=== PATIENT | female | born 1955 | race Caucasian/White ===

== ENCOUNTER 2019-07-22 13:56 | Outpatient (CLI) | payer MEDICARE, SELFPAY ==
--- NOTE | 2019-07-23 21:08 | WPDSIXMINUTE ---
Six Minute Walk Six Minute Walk: DOS: 07/22/2019 REQUESTING: Dr. Mares REASON FOR TESTING: Shortness of breath SIX MINUTE WALK This test was conducted per ATS guidelines. Initial saturation was 94% pulse was 94. Blood pressure 136/80. The patient walked for 6 minutes without stopping. Saturation dropped transiently to 89% after 4 minutes and recovered spontaneously. The ending saturation was 94% and pulse was 87. Distance walked was 1050 ft/320 meters. The patient did not stop to rest during the study. IMPRESSION: Mild desaturation without james hypoxemia. No supplemental oxygen is indicated with exertion. Distance walked is adequate for age. Kezia Zelaya MD
== END 2019-07-22 13:57 | disposition home or self-care (01) ==
PROVIDERS: PCP Internal Medicine; Visit Provider Internal Medicine Critical Care Medicine
DX: J44.9 Chronic obstructive pulmonary disease, unspecified (principal)
CPT/HCPCS: 94618

== ENCOUNTER 2020-11-02 06:41 | Outpatient (CLI) | payer MEDICARE, SELFPAY ==
[2020-11-02 07:41] LABS: Basophils Absolute Auto 0.1 K/mm3 (0.0-0.1); Basophils Percent Auto 0.6 % (0.2-1.2); Eosinophils Absolute Auto 0.3 K/mm3 (0-0.3); Eosinophils Percent Auto 3.2 % (0-4.4); Hematocrit 41.9 % (37.0-47.0); Hemoglobin 13.4 g/dL (12.0-15.0); Immature Granulocyte Absolute 0.04 K/mm3 (0.00-0.031); Immature Granulocyte Percent A 0.5 % (0-0.5); Lymphocytes Absolute Auto 1.63 K/mm3 (0.9-3.2); Mean Corpuscular Hemoglobin 30.9 pg (26-34); Mean Corpuscular Volume 96.5 fl (80-100); Mean Platelet Volume 10.6 fl (7.4-10.4); Monocytes Absolute Auto 0.6 K/mm3 (0.1-0.6); Monocytes Percent Auto 7.5 % (2.6-8.5); Neutrophils Absolute Auto 5.6 K/mm3 (1.3-6.7); Neutrophils Percent Auto 68.2 % (45.5-73.1); Platelet Count Result 223 k/mm3 (150-375); Red Blood Count 4.34 M/mm3 (4.2-5.4); White Blood Count 8.2 K/mm3 (4.5-10.0)
[2020-11-02 07:50] LABS: Alanine Aminotransferase 10 U/L (4-35); Albumin Level 3.9 g/dL (3.5-5.1); Alkaline Phosphatase 58 U/L (38-126); Anion Gap 8 mmol/L (8-16); Aspartate Amino Transferase 19 U/L (14-36); Bilirubin,Total 0.4 mg/dL (0.2-1.3); Blood Urea Nitrogen 11 mg/dL (7-17); Carbon Dioxide 26 mmol/L (22-30); Chloride 108 mmol/L (98-107); Cholesterol 286 mg/dL (0-200); Estimated Glomerular Filt Rate > 60; Glucose 94 mg/dL (65-105); HDL Direct 54 mg/dL; Potassium 4.2 mmol/L (3.4-5.0); Sodium 142 mmol/L (137-145); Triglycerides 86 mg/dL (<150)
[2020-11-02 08:01] LABS: LDL Cholesterol Direct 163 mg/dL
[2020-11-02 08:21] LABS: Vitamin D 25 Hydroxy 48.1 ng/mL
== END 2020-11-02 06:42 | disposition home or self-care (01) ==
PROVIDERS: PCP Internal Medicine; Visit Provider Nurse Practitioner
DX: E78.5 Hyperlipidemia, unspecified (principal); E55.9 Vitamin D deficiency, unspecified; E03.9 Hypothyroidism, unspecified
CPT/HCPCS: 36415; 80053; 80061; 82306; 84443; 85025

== ENCOUNTER 2020-11-16 10:23 | Outpatient (CLI) | payer MEDICARE, SELFPAY ==
--- NOTE | ~2020-11-16 | US_ITS ---
EXAMINATION: US soft tissue lower back DATE: 11/16/2020 10:46 INDICATION: Right flank mass. TECHNIQUE: Multiple grayscale and Doppler ultrasound images of the right flank were obtained. COMPARISON: Chest CT 02/10/2019 FINDINGS: In the right flank body wall, there is a 4.2 x 0.7 x 3.2 cm mass with similar echogenicity and echotexture to subcutaneous fat. This finding correlates with a lipoma on the prior CT. IMPRESSION: 1. 4.2 cm lipoma in the right flank body wall. Reviewed, dictated and finalized at location A.
== END 2020-11-16 10:24 | disposition home or self-care (01) ==
PROVIDERS: PCP Internal Medicine; Visit Provider Nurse Practitioner
DX: R22.9 Localized swelling, mass and lump, unspecified (principal)
CPT/HCPCS: 76705

== ENCOUNTER 2020-11-19 10:00 | Outpatient (CLI) | payer MEDICARE, SELFPAY ==
--- NOTE | ~2020-11-19 | CT_ITS ---
EXAMINATION: CT lung screening DATE: 11/19/2020 10:31 INDICATION: Personal history of tobacco dependence, current smoker with 40 pack year history TECHNIQUE: Computed tomography (CT) of the chest was performed without intravenous contrast. The dose -length product (DLP) was 82.88 mGy-cm. Automated exposure control and iterative reconstruction techn [email or web address] were employed. COMPARISON: 02/10/2019 FINDINGS: There is mild emphysema. There is a 2 mm nodule of the left upper lobe on image 22. There i s a 2 mm nodule of the right upper lobe on image 26. The lungs are free of acute opacities. There is no pleural effusion or pneumothorax. No pathologically enlarged thoracic lymph nodes are identified. The heart size is normal. An ASD closure device is noted. There is mild thoracic spondylosis and nakia re lower lumbar spondylosis. A 1.4 cm cyst is noted in the left hepatic lobe. IMPRESSION: 1. Lung-RADS category 2: Benign appearance or behavior. Continue annual screening with noncontrast lo w-dose chest CT in 12 months. Reviewed, dictated and finalized at location A. IMPRESSION: 1. Lung-RADS category 2: Benign appearance or behavior. Continue annual screeni ng with noncontrast low-dose chest CT in 12 months.
== END 2020-11-19 10:01 | disposition home or self-care (01) ==
PROVIDERS: PCP Internal Medicine; Visit Provider Nurse Practitioner
DX: Z12.2 Encounter for screening for malignant neoplasm of respiratory organs (principal); Z87.891 Personal history of nicotine dependence
CPT/HCPCS: 71271

== ENCOUNTER 2021-05-06 07:07 | Outpatient (CLI) | payer MEDICARE, SELFPAY ==
--- NOTE | ~2021-05-06 | MM_ITS ---
EXAMINATION: MM screening [facility] BI w cecilia HISTORY: Screening TECHNIQUE: Craniocaudal and mediolateral oblique 3-D tomosynthesis images were obtained and synthetic 2-D images were generated. CAD analysis was submitted and interpreted. COMPARISON: Comparison to multiple prior studies sequentially, with oldest reviewed study dated 03/28. BREAST PARENCHYMAL COMPOSITION: There are scattered areas of fibroglandular density. FINDINGS: There is no evidence of suspicious mass, calcification, or architectural distortion to sugg est malignancy in either breast. There has been no suspicious interval change. IMPRESSION: 1. No mammographic evidence of malignancy. 2. Recommend routine screening mammography in one year. BI-RADS Category 1: Negative Reviewed, dictated and finalized at location A. ALT ROLL[employer] PERSON
== END 2021-05-06 07:08 | disposition home or self-care (01) ==
LOC: ANHIMG 07:10
PROVIDERS: PCP Internal Medicine; Visit Provider Internal Medicine
DX: Z12.31 Encounter for screening mammogram for malignant neoplasm of breast (principal)
CPT/HCPCS: 77063; 77067

== ENCOUNTER 2021-11-22 08:18 | Outpatient (CLI) | payer MEDICARE, SELFPAY ==
--- NOTE | ~2021-11-22 | CT_ITS ---
EXAMINATION: CT diagnostic chest wo con DATE: 11/22/2021 08:38 INDICATION: Lung nodule TECHNIQUE: Computed tomography (CT) of the chest was performed without intravenous contrast. Automate d exposure control and iterative reconstruction technique were employed. Exam dose: 154.90 mGy-cm to jose exam DLP. COMPARISON: 11/19/2020 CT lung screening examinations FINDINGS: No change of reported 2 mm left upper lobe nodule since 11/19/2020. No change of 2 mm nodule reported in the posterior right upper lobe since 11/19/2020. Mild emphysematous changes of the lungs. No pulmonary infiltrate or consolidation or suspicious pulmonary mass lesion is detected. No hilar or mediastinal mass lesion or lymphadenopathy. No thoracic aortic aneurysm. Normal heart size. Atrial septal closure device is noted. No pericardial or pleural effusion. Stable lateral segment left hepatic cyst. Normal morphology of the adrenal glands. Included skeletal structures are unremarkable; no suspicious osteolytic or osteoblastic lesions. IMPRESSION: No significant abnormality other than mild emphysema Reviewed, dictated and finalized at Location A. Reviewed, dictated and finalized at location B.
== END 2021-11-22 08:19 | disposition home or self-care (01) ==
PROVIDERS: PCP Internal Medicine; Visit Provider Nurse Practitioner
DX: R91.1 Solitary pulmonary nodule (principal)
CPT/HCPCS: 71250

== ENCOUNTER 2022-02-15 08:15 | Outpatient (CLI) | payer MEDICARE, SELFPAY ==
[2022-02-15 08:36] LABS: Basophils Absolute Auto 0.1 K/mm3 (0.0-0.1); Basophils Percent Auto 0.6 % (0.2-1.2); Eosinophils Absolute Auto 0.4 K/mm3 (0-0.3); Eosinophils Percent Auto 3.9 % (0-4.4); Hematocrit 45.2 % (37.0-47.0); Hemoglobin 14.4 g/dL (12.0-15.0); Immature Granulocyte Absolute 0.04 K/mm3 (0.00-0.031); Immature Granulocyte Percent A 0.4 % (0-0.5); Lymphocytes Absolute Auto 1.44 K/mm3 (0.9-3.2); Lymphocytes Percent Auto 16.2 % (18.3-44.2); Mean Corpuscular HGB Conc 31.9 g/dl (32-36); Mean Corpuscular Hemoglobin 31.9 pg (26-34); Mean Platelet Volume 10.3 fl (7.4-10.4); Monocytes Absolute Auto 0.5 K/mm3 (0.1-0.6); Monocytes Percent Auto 5.5 % (2.6-8.5); Neutrophils Absolute Auto 6.5 K/mm3 (1.3-6.7); Neutrophils Percent Auto 73.4 % (45.5-73.1); Platelet Count Result 251 k/mm3 (150-375); Red Blood Count 4.52 M/mm3 (4.2-5.4); Red Cell Distribution Width 14.3 % (11.5-14.5); White Blood Count 8.9 K/mm3 (4.5-10.0)
[2022-02-15 08:47] LABS: Alanine Aminotransferase 15 U/L (6-35); Albumin Level 4.2 g/dL (3.5-5.1); Alkaline Phosphatase 68 U/L (38-126); Anion Gap 10 mmol/L (8-16); Aspartate Amino Transferase 21 U/L (14-36); Bilirubin,Total 0.5 mg/dL (0.2-1.3); Blood Urea Nitrogen 12 mg/dL (7-17); Calcium 8.9 mg/dL (8.4-10.2); Carbon Dioxide 25 mmol/L (22-30); Chloride 105 mmol/L (98-107); Cholesterol 215 mg/dL (0-200); Estimated Glomerular Filt Rate > 60; Glucose 94 mg/dL (65-110); HDL Direct 52 mg/dL; Potassium 4.1 mmol/L (3.4-5.0); Sodium 140 mmol/L (137-145); Triglycerides 68 mg/dL (<150)
[2022-02-15 08:56] LABS: Prothrombin Time 12.9 Seconds (11.1-14.7)
[2022-02-15 08:58] LABS: LDL Cholesterol Direct 136 mg/dL
[2022-02-15 09:38] LABS: Vitamin D 25 Hydroxy 35.5 ng/mL
== END 2022-02-15 08:16 | disposition home or self-care (01) ==
PROVIDERS: PCP Internal Medicine; Visit Provider Nurse Practitioner
DX: R23.8 Other skin changes (principal); E55.9 Vitamin D deficiency, unspecified; E03.9 Hypothyroidism, unspecified; E78.5 Hyperlipidemia, unspecified
CPT/HCPCS: 36415; 80053; 80061; 82306; 84443; 85025; 85610

== ENCOUNTER 2022-05-17 13:29 | Outpatient (CLI) | payer MEDICARE, SELFPAY ==
--- NOTE | ~2022-05-17 | DEXA_ITS ---
Bone Density Report Name: ARTHUR CODY Age: 66 Sex: Female Ethnicity: White Date of : 1955 Indication: postmenopausal; screening for osteoporosis; height loss; Referring Provider: ERICKA GUERRA Study: Bone densitometry was performed. Exam Date: May 17, 2022 Accession number: [id number] Bone Density: Region BMD T-score Z-score Classification AP Spine(L1-L4) 0.839 -1.9 -0.1 Osteopenia Femoral Neck (Left) 0.551 -2.7 -1.1 Osteoporosis Total Hip (Left) 0.701 -2.0 -0.7 Osteopenia Femoral Neck (Right) 0.546 -2.7 -1.2 Osteoporosis Total Hip (Right) 0.648 -2.4 -1.1 Osteopenia Total Hip Mean 0.674 -2.2 -0.9 Osteopenia World Health Organization criteria for BMD impression classify patients as: Normal (T-score at or above -1.0), Osteopenia (T-score between -1.0 and -2.5), or Osteoporosis (T-score at or below -2.5). 10-year Fracture Risk: FRAX not reported because: Some T-score for Spine Total or Hip Total or Femoral Neck at or below -2.5 Clinical Information Provided by Patient: Smokes Has used the following medications: Vitamin D Patient maximum height was 61 Menopause Age: 51 No regular weight bearing exercise Does not regularly consume dairy products Drinks caffeinated beverages Onset of menses at age 14 Number of children 2 Impression: The patient has osteoporosis, based on the Left Femoral Neck T-score. The patient has risk factors, including: smoking. Discussion: INCREASED RISK OF FRACTURE. BONE DENSITY IS UNDESIRABLY LOW AT ONE OR MORE SKELETAL SITES, CONSISTENT WITH POSTMENOPAUSAL OSTEOPOROSIS. This patient's lowest T-score meets the World Health Organization's (WHO) criteria for osteoporosis at one or more sites (T-score -2.5 or below). In untreated patients, the risk of osteoporotic fracture increases approximately two-fold for each 1.0 SD decrease in T-score. Low bone density is not the only risk factor for fracture; also consider factors such as patient's age, frailty or poor health, risk of falling, risk of injury, previous osteoporotic fracture, family history of osteoporosis, cigarette smoking, low body weight, etc. Not everyone with low bone mineral density has osteoporosis; osteomalacia and other metabolic bone disorders should also be considered. Patients who have osteoporosis should be evaluated for specific diseases and conditions (secondary causes) that may cause or contribute to bone loss. The [place] [employer]ocrinologists (AACE) and National Osteoporosis Foundation (NOF) recommend pharmacologic intervention for all postmenopausal women whose T-score is in this range. The patient should follow a healthful lifestyle (good nutrition with adequate calcium and vitamin D, and appropriate weight-bearing exercise). Follow-Up: Consider a repeat BMD
== END 2022-05-17 13:30 | disposition home or self-care (01) ==
PROVIDERS: PCP Internal Medicine; Visit Provider Nurse Practitioner
DX: M81.0 Age-related osteoporosis without current pathological fracture (principal); M85.88 Other specified disorders of bone density and structure, other site; M85.852 Other specified disorders of bone density and structure, left thigh; M85.851 Other specified disorders of bone density and structure, right thigh
CPT/HCPCS: 77080

== ENCOUNTER 2022-07-04 01:39 | Day surgery (SDC) | payer MEDICARE, SELFPAY ==
[2022-06-20 13:38] VITALS: BMI 26.0
[2022-07-04 06:43] VITALS: BP 109/74; PULSE 102; RESP 17; TEMP 36.4; O2SAT 94; BMI 24.8
[2022-07-04] MEDS: LACTATED RINGERS 1,000 ML 150 ML IV CONT (06:50)
--- NOTE | 2022-07-04 07:31 | WPDANESEPPF ---
Anes - Initial Pre Proc Eval Procedure: Operation Date: 07/04/22 08:00 Proposed Procedures p Colonoscopy - Jesús Pate MD Date/Time: 07/04/22 07:31 Surgeon: Jesús Pate MD Pre Op Diagnosis: change in bowel habits Patient Data Age: 66 Gender: F Height: 1.52 m Weight: 57.8 kg Last Vital Signs Temp 97.5 F L 07/04/22 06:43 Pulse 102 H 07/04/22 06:43 Resp 17 07/04/22 06:43 BP 109/74 07/04/22 06:43 Pulse Ox 94 07/04/22 06:43 O2 Del Method Room Air 07/04/22 06:43 Allergies Allergy/AdvReac Type Severity Reaction Status Date / Time Sulfa (Sulfonamide Allergy Unknown n/a Verified 07/04/22 06:41 Antibiotics) Home Medications Medication Instructions Recorded Confirmed Type aspirin 81 mg tablet,delayed 81 mg PO DAILY 05/07/19 07/04/22 History release (Adult Low Dose Aspirin) cholecalciferol (vitamin D3) 25 2,000 unit PO DAILY 05/07/19 07/04/22 History mcg (1,000 unit) capsule inhalational spacing device #1 ea 07/18/19 07/04/22 Rx (Vortex Holding Chamber) budesonide-formoterol HFA 160 2 puff inhalation BID #10.2 grams 05/17/22 07/04/22 Rx mcg-4.5 mcg/actuation aerosol inhaler (Symbicort) ezetimibe 10 mg tablet (Zetia) 10 mg PO DAILY #90 tabs 06/08/22 07/04/22 Rx sertraline 50 mg tablet 75 mg PO DAILY #135 tabs 06/08/22 07/04/22 Rx albuterol sulfate 90 mcg/actuation 2 inh inhalation Q4-6H PRN 06/20/22 07/04/22 History aerosol inhaler Shortness Of Breath levothyroxine 50 mcg tablet 50 mcg PO DAILY 06/20/22 07/04/22 History Patient hx anesthesia problems: none Family hx anesthesia problems: none Results Review: All pre-operative results and documents have been reviewed as part of the pre-operative evaluation. [facility] Past Medical History Medical History Acquired hypothyroidism COPD (chronic obstructive pulmonary disease) CVA (cerebral vascular accident) Dyspnea Hyperlipidemia Hypothyroidism Lung nodule Major depressive disorder Migraine Osteoporosis Osteoporosis without current pathological fracture Pulmonary emphysema Surgical History Surgical History History of ankle surgery History of catheter-based closure of atrial septal defect Family History Family History Mother Hypertension Breast cancer TIA (transient ischemic attack) Brain aneurysm Father Family history of cardiovascular disease Hypertension Sibling Dementia Social History Social History (Updated 05/31/22 @ 08:20 by Aliza Jaramillo CMA) Smoking packs per day: 1 Smoking cigarettes per day: 20.0 Years smoked: 40 Smoking pack-years: 40.00 Smoking status: Current every day smoker Tobacco type: cigarettes Alcohol intake: never Substance use: never Substance use type: does not use Lack of Transportation: No Lack of Food: Never True Current Housing: I Have Housing Concerned About Future Housing: No Difficulty Paying Gas/Electric Bills: No Difficulty Paying for Meds: No Currently Unemployed: No Education: Trade/Vocational Certificate Difficulty w/ Childcare or Family Care: No Living arrangements: with family Spiritual care concerns: No Anes - Eval Final PreProcedure Day of Procedure 07/04/22 07:31 Patient weight: normal Heart: regular rate and rhythm Lungs: clear to auscultation Airway: Mallampati scale class II Neurological: alert and oriented Last oral intake: >/= 8 hours ASA classification: III Emergent: no Anesthetic plan: proceed Anesthesia type and monitoring: general GIVS and standard monitoring Results Review: All pre-operative results and documents have been reviewed as part of the pre-operative evaluation. Informed Consent: The patient's anesthetic plan and its attendant risks and benefits were discussed with the pat
--- NOTE | 2022-07-04 07:45 | PM.HPGS ---
History of Present Illness History of Present Illness Consent: Risks, benefits, and alternatives have been discussed and questions answered. Patient agrees to proceed with procedure. Chief complaint: change in bowel habits Narrative: Lucía Olivo is a 66 year old female with change of bowel habits last few months but lately better, she was having soft stools soon after eating, never had colonoscopy Review of Systems Constitutional: Constitutional: Denies headache(s) and Denies weakness Eyes: Eyes: Denies blurry vision ENT: Reports Normal hearing present, Denies headache(s) and Denies neck pain Cardiovascular: Cardiovascular: Denies chest pain and Denies dyspnea Respiratory: Respiratory: Denies dyspnea Gastrointestinal: Gastrointestinal: Reports no additional gastrointestinal complaints Genitourinary: Genitourinary: Denies dysuria Musculoskeletal: Musculoskeletal: Denies neck pain Integumentary/Breasts: Skin/Breast: Denies dry skin Neurologic: Reports Normal hearing present, Denies headache(s) and Denies weakness Psychiatric: Psychiatric: Denies anxiety Endocrine: Endocrine: Denies change in body appearance Hematologic/Lymphatic: Hematologic/Lymphatic: Denies easy bleeding Allergic/Immunologic: Allergic/Immunologic: Denies urticaria PMFSH Past Medical History Medical History (Updated 07/04/22 @ 07:46 by Jesús Pate MD) Acquired hypothyroidism Colon cancer screening COPD (chronic obstructive pulmonary disease) CVA (cerebral vascular accident) Dyspnea Hyperlipidemia Hypothyroidism Lung nodule Major depressive disorder Migraine Osteoporosis Osteoporosis without current pathological fracture Pulmonary emphysema Surgical History Surgical History History of ankle surgery History of catheter-based closure of atrial septal defect Family History Family History Mother Hypertension Breast cancer TIA (transient ischemic attack) Brain aneurysm Father Family history of cardiovascular disease Hypertension Sibling Dementia Social History Social History (Updated 05/31/22 @ 08:20 by Aliza Jaramillo CMA) Smoking packs per day: 1 Smoking cigarettes per day: 20.0 Years smoked: 40 Smoking pack-years: 40.00 Smoking status: Current every day smoker Tobacco type: cigarettes Alcohol intake: never Substance use: never Substance use type: does not use Lack of Transportation: No Lack of Food: Never True Current Housing: I Have Housing Concerned About Future Housing: No Difficulty Paying Gas/Electric Bills: No Difficulty Paying for Meds: No Currently Unemployed: No Education: Trade/Vocational Certificate Difficulty w/ Childcare or Family Care: No Living arrangements: with family Spiritual care concerns: No Meds Home Medications and Allergies Home Medications Medication Instructions Recorded Confirmed Type aspirin 81 mg tablet,delayed 81 mg PO DAILY 05/07/19 07/04/22 History release (Adult Low Dose Aspirin) cholecalciferol (vitamin D3) 25 2,000 unit PO DAILY 05/07/19 07/04/22 History mcg (1,000 unit) capsule inhalational spacing device #1 ea 07/18/19 07/04/22 Rx (Vortex Holding Chamber) budesonide-formoterol HFA 160 2 puff inhalation BID #10.2 grams 05/17/22 07/04/22 Rx mcg-4.5 mcg/actuation aerosol inhaler (Symbicort) ezetimibe 10 mg tablet (Zetia) 10 mg PO DAILY #90 tabs 06/08/22 07/04/22 Rx sertraline 50 mg tablet 75 mg PO DAILY #135 tabs 06/08/22 07/04/22 Rx albuterol sulfate 90 mcg/actuation 2 inh inhalation Q4-6H PRN 06/20/22 07/04/22 History aerosol inhaler Shortness Of Breath levothyroxine 50 mcg tablet 50 mcg PO DAILY 06/20/22 07/04/22 History Allergies Allergy/AdvReac Type Severity Reaction Status Date / Time Sulfa (Sulfonamide Allergy Unknown n/a Verified 07/04/22 06:41 Antibiotics)
[2022-07-04 08:07] VITALS: BP 88/53; PULSE 77; RESP 37; O2SAT 100
[2022-07-04 08:17] VITALS: BP 89/57; PULSE 74; RESP 16; O2SAT 99
[2022-07-04 08:27] VITALS: BP 102/60; PULSE 72; RESP 14; O2SAT 99
== END 2022-07-04 08:32 | disposition home or self-care (01) ==
PROVIDERS: PCP Internal Medicine; Visit Provider Internal Medicine Gastroenterology
PROC: 0DJD8ZZ Inspection of Lower Intestinal Tract, Via Natural or Artificial Opening Endoscopic (ICD-10-PCS; CPT 45378; principal; 2022-07-04 08:00)
DX: Z12.11 Encounter for screening for malignant neoplasm of colon (principal); D12.2 Benign neoplasm of ascending colon; K63.5 Polyp of colon; R19.4 Change in bowel habit; K64.8 Other hemorrhoids; E03.9 Hypothyroidism, unspecified; E78.5 Hyperlipidemia, unspecified; M81.0 Age-related osteoporosis without current pathological fracture; J43.9 Emphysema, unspecified; Z86.73 Personal history of transient ischemic attack (TIA), and cerebral infarction without residual deficits; Z79.82 Long term (current) use of aspirin; Z79.51 Long term (current) use of inhaled steroids; F17.210 Nicotine dependence, cigarettes, uncomplicated
CPT/HCPCS: 45385; 45380; 88305; J2704; J7120

== ENCOUNTER 2022-07-07 09:05 | Outpatient (CLI) | payer MEDICARE, SELFPAY ==
--- NOTE | ~2022-07-07 | MM_ITS ---
EXAMINATION: MM screening [facility] BI w cecilia HISTORY: Screening mammogram TECHNIQUE: Craniocaudal and mediolateral oblique 3-D tomosynthesis images were obtained and synthetic 2-D images were generated. CAD analysis was submitted and interpreted. COMPARISON: 05/06/2021, 04/24/2017 bilateral screening mammogram examinations BREAST PARENCHYMAL COMPOSITION: The breasts are heterogeneously dense, which may obscure small masses . FINDINGS: There is no evidence of suspicious mass, calcification, or architectural distortion to sugg est malignancy in either breast. There has been no suspicious interval change. IMPRESSION: 1. No mammographic evidence of malignancy. 2. Recommend routine screening mammography in one year. BI-RADS Category 1: Negative Reviewed, dictated and finalized at location A. H TRUCK DRIVER
== END 2022-07-07 09:06 | disposition home or self-care (01) ==
PROVIDERS: PCP Internal Medicine; Visit Provider Nurse Practitioner
DX: Z12.31 Encounter for screening mammogram for malignant neoplasm of breast (principal)
CPT/HCPCS: 77063; 77067

== ENCOUNTER → 2022-12-25 13:22 | Outpatient (CLI) | payer MEDICARE, SELFPAY ==
--- NOTE | ~2022-12-25 | XR_ITS ---
EXAMINATION: XR chest 2V DATE: 12/25/2022 13:34 INDICATION: Cough. Fever. Shortness of breath. TECHNIQUE: Frontal and lateral views of the chest were obtained. COMPARISON: Chest 2 views 02/02/2015, chest CT 11/22/2021 FINDINGS: The chest demonstrates clear lungs without pneumonia, pleural effusion, or pneumothorax. Th e heart size is normal. There is an interatrial closure device. IMPRESSION: 1. No acute cardiopulmonary disease. Reviewed, dictated and finalized at location A.
== END ==
PROVIDERS: PCP Nurse Practitioner; Visit Provider Clinical Nurse Specialist
DX: R05.9 Cough, unspecified (principal); R50.9 Fever, unspecified; R06.02 Shortness of breath
CPT/HCPCS: 71046

== ENCOUNTER 2023-04-25 08:29 | Outpatient (CLI) | payer MEDICARE, SELFPAY ==
[2023-04-25 09:28] LABS: Basophils Percent Auto 0.4 % (0.2-1.2); Eosinophils Absolute Auto 0.2 K/mm3 (0-0.3); Eosinophils Percent Auto 1.8 % (0-4.4); Hematocrit 43.8 % (37.0-47.0); Hemoglobin 13.8 g/dL (12.0-15.0); Immature Granulocyte Absolute 0.04 K/mm3 (0.00-0.031); Immature Granulocyte Percent A 0.4 % (0-0.5); Lymphocytes Absolute Auto 1.08 K/mm3 (0.9-3.2); Lymphocytes Percent Auto 11.9 % (18.3-44.2); Mean Corpuscular HGB Conc 31.5 g/dl (32-36); Mean Corpuscular Hemoglobin 31.4 pg (26-34); Mean Corpuscular Volume 99.5 fl (80-100); Mean Platelet Volume 10.7 fl (7.4-10.4); Monocytes Absolute Auto 0.5 K/mm3 (0.1-0.6); Monocytes Percent Auto 5.8 % (2.6-8.5); Neutrophils Absolute Auto 7.2 K/mm3 (1.3-6.7); Neutrophils Percent Auto 79.7 % (45.5-73.1); Platelet Count Result 256 k/mm3 (150-375); Red Cell Distribution Width 14.5 % (11.5-14.5)
[2023-04-25 09:38] LABS: INR 0.9; Prothrombin Time 12.6 Seconds (11.1-14.7)
[2023-04-25 09:40] LABS: Alanine Aminotransferase 18 U/L (6-35); Albumin Level 4.3 g/dL (3.5-5.1); Alkaline Phosphatase 64 U/L (38-126); Anion Gap 8 mmol/L (8-16); Aspartate Amino Transferase 23 U/L (14-36); Bilirubin,Total 0.6 mg/dL (0.2-1.3); Blood Urea Nitrogen 9 mg/dL (7-17); Calcium 9.1 mg/dL (8.4-10.2); Carbon Dioxide 28 mmol/L (22-30); Chloride 105 mmol/L (98-107); Cholesterol 247 mg/dL (0-200); Estimated Glomerular Filt Rate > 60; Glucose 90 mg/dL (65-110); HDL Direct 52 mg/dL; Potassium 4.1 mmol/L (3.4-5.0); Sodium 141 mmol/L (137-145); Triglycerides 101 mg/dL (<150)
[2023-04-25 09:50] LABS: LDL Cholesterol Direct 150 mg/dL
[2023-04-25 10:10] LABS: Thyroid Stimulating Hormone 0.615 uIU/mL (0.465-4.680)
[2023-04-25 10:27] LABS: Iron 68 ug/dL (37-170)
[2023-04-25 10:36] LABS: Percent Iron Saturation 21 % (20-50)
[2023-04-25 10:45] LABS: Folic Acid 7.9 ng/mL (2.76->20)
[2023-04-25 10:46] LABS: Vitamin D 25 Hydroxy 32.5 ng/mL
== END 2023-04-25 08:30 | disposition home or self-care (01) ==
PROVIDERS: PCP Nurse Practitioner; Visit Provider Nurse Practitioner
DX: E03.9 Hypothyroidism, unspecified (principal); E55.9 Vitamin D deficiency, unspecified; E78.5 Hyperlipidemia, unspecified; R23.8 Other skin changes; D64.9 Anemia, unspecified; I63.9 Cerebral infarction, unspecified
CPT/HCPCS: 36415; 80053; 80061; 82306; 82607; 82728; 82746; 83540; 83550; 84443; 85025; 85610

== ENCOUNTER 2023-09-10 08:26 | Outpatient (CLI) | payer MEDICARE, SELFPAY ==
--- NOTE | ~2023-09-10 | MM_ITS ---
EXAMINATION: MM screening [facility] BI w cecilia HISTORY: Screening TECHNIQUE: Craniocaudal and mediolateral oblique 3-D tomosynthesis images were obtained and synthetic 2-D images were generated. CAD analysis was submitted and interpreted. COMPARISON: Comparison to multiple prior studies sequentially, with oldest reviewed study dated 04/27. BREAST PARENCHYMAL COMPOSITION: Dense: The breasts are heterogeneously dense, which may obscure small masses FINDINGS: There is a mass in the lower outer quadrant of the right breast. The left breast is stable without evidence for malignancy. IMPRESSION: 1. Right breast mass, lower outer quadrant. 2. Additional mammographic views and possible breast ultrasound are recommended. BI-RADS Category 0: Incomplete: Needs additional imaging evaluation. Reviewed, dictated and finalized at location A. IMPRESSION: 1. Right breast mass, lower outer quadrant. 2. Additional mammographic views and possible breast ultrasound are recommended . BI-RADS Category 0: Incomplete: Needs additional imaging evaluation.
== END 2023-09-10 08:27 | disposition home or self-care (01) ==
LOC: ANHIMG 08:29
PROVIDERS: PCP Nurse Practitioner; Visit Provider Nurse Practitioner
DX: Z12.31 Encounter for screening mammogram for malignant neoplasm of breast (principal); R92.8 Other abnormal and inconclusive findings on diagnostic imaging of breast
CPT/HCPCS: 77063; 77067

== ENCOUNTER 2023-09-17 09:34 | Outpatient (CLI) | payer MEDICARE, SELFPAY ==
--- NOTE | ~2023-09-17 | MMUS_ITS ---
EXAMINATION: MM diagnostic [facility] RT w cecilia, US breast RT limited HISTORY: Lower outer quadrant right breast mass reported on September 10, 2023 screening mammogram TECHNIQUE: Additional 3-D tomosynthesis images of the right breast were performed and synthetic 2-D i mages were generated. CAD analysis was submitted and interpreted. High resolution upper outer and low er-outer quadrant right breast ultrasound was performed. COMPARISON: September 10, 2023 bilateral screening mammogram FINDINGS: MAMMOGRAPHIC FINDINGS: No suspicious mass or architectural distortion is detected. ULTRASOUND: No suspicious mass or shadowing, cyst or other significant sonographic abnormality is detected in the upper outer or lower outer quadrants of the right breast. IMPRESSION: 1. No evidence of malignancy 2. Routine annual mammographic screening is recommended BI-RADS Category 1: Negative Reviewed, dictated and finalized at location A. IMPRESSION: 1. No evidence of malignancy 2. Routine annual mammographic screening is recommended BI-RADS Category 1: Negative
== END 2023-09-17 09:35 | disposition home or self-care (01) ==
LOC: CHSIMG 09:36
PROVIDERS: PCP Nurse Practitioner; Visit Provider Nurse Practitioner
DX: R92.8 Other abnormal and inconclusive findings on diagnostic imaging of breast (principal); N63.10 Unspecified lump in the right breast, unspecified quadrant
CPT/HCPCS: 76642; 77061; 77065; G0279

== ENCOUNTER 2023-10-07 19:03 | Inpatient (IN) | payer MEDICARE, SELFPAY ==
[2023-10-07] VITALS (18 sets, daily range): BP systolic 125–143; BP diastolic 60–128; PULSE 109–137; RESP 15–34; TEMP 37.1–37.2; O2SAT 80–100
--- NOTE | ~2023-10-07 | CT_ITS ---
Clinical Indication: Shortness of breath CT Scan of the Chest with Contrast: Technique: Contiguous sections were acquired throughout the chest after intravenous administration of 100 cc of Omnipaque 350. Dose reduction technique was used on this scan by utilizing automated expos ure control and iterative reconstruction technique. The dose-length product (DLP) was 151.61 mGy-cm. COMPARISON: 11/22/2021 Findings: There is no evidence of any significant mediastinal, hilar or axillary lymphadenopathy. There is no f illing defect in the pulmonary arterial tree to suggest pulmonary embolus. There is no evidence of ao rtic dissection or aneurysm. There is no evidence of pleural or pericardial effusion. There are scattered focal areas of tree-in-bud opacities peripherally, especially in the left upper l obe and bilateral lower lobes, as well as several focal areas of slightly more confluent consolidatio n peripherally in the left lower lobe (axial image 89 for example). Images through the upper abdomen reveal no abnormalities. Impression: No evidence of pulmonary embolus, aortic dissection, or aortic aneurysm. Tree-in-bud opacities and focal areas of peripheral airspace consolidation, compatible with small air ways infection/pneumonia. Reviewed, dictated and finalized at [facility]. Impression: No evidence of pulmonary embolus, aortic dissection, or aortic aneurysm. Tree-in-bud opacities and focal areas of peripheral airspace consolidation, com patible with small airways infection/pneumonia.
--- NOTE | ~2023-10-07 | XR_ITS ---
EXAMINATION: XR chest 1V portable DATE: 10/07/2023 19:35 INDICATION: Shortness of breath. TECHNIQUE: A single frontal view of the chest was obtained. COMPARISON: Chest 2 views 12/25/2022, chest CT 11/14/2021 FINDINGS: There are lucencies and interstitial opacities in the lungs, consistent with emphysema. No pleural effusion or pneumothorax. The heart size is normal. There is an interatrial closure device in the heart. IMPRESSION: 1. Emphysema. Reviewed, dictated and finalized at location E. IMPRESSION: 1. Emphysema.
--- NOTE | 2023-10-07 19:04 | ECG_ITS ---
SEE SCANNED COPY FOR CONFIRMED REPORT MTDD
[2023-10-07] MEDS: SODIUM CHLORIDE 0.9% IV 2,000 ML 999 ML IV CONT (19:42)
[2023-10-07] MEDS: dexAMETHasone SOD PHOS INJ 10 MG/ML 1 ML VIAL IV PUSH (19:43)
[2023-10-07] MEDS: MAGNESIUM SULF 2 GM/WATER 50ML 2 GM/50 ML BAG IVPB (19:45)
[2023-10-07 19:49] LABS: Basophils Absolute Auto 0.1 K/mm3 (0.0-0.1); Basophils Percent Auto 0.3 % (0.2-1.2); Eosinophils Percent Auto 0.1 % (0-4.4); Hematocrit 44.5 % (37.0-47.0); Hemoglobin 14.4 g/dL (12.0-15.0); Immature Granulocyte Absolute 0.08 K/mm3 (0.00-0.031); Immature Granulocyte Percent A 0.4 % (0-0.5); Lymphocytes Absolute Auto 0.82 K/mm3 (0.9-3.2); Lymphocytes Percent Auto 4.3 % (18.3-44.2); Mean Corpuscular HGB Conc 32.4 g/dl (32-36); Mean Corpuscular Hemoglobin 30.6 pg (26-34); Mean Corpuscular Volume 94.7 fl (80-100); Mean Platelet Volume 10.8 fl (7.4-10.4); Monocytes Absolute Auto 1.6 K/mm3 (0.1-0.6); Monocytes Percent Auto 8.3 % (2.6-8.5); Neutrophils Absolute Auto 16.5 K/mm3 (1.3-6.7); Neutrophils Percent Auto 86.6 % (45.5-73.1); Platelet Count Result 250 k/mm3 (150-375); Red Cell Distribution Width 13.9 % (11.5-14.5); White Blood Count 19.1 K/mm3 (4.5-10.0)
[2023-10-07 19:57] LABS: Lactic Acid Reflex 1.3 mmol/L (0.7-2.0)
[2023-10-07 19:58] LABS: Alanine Aminotransferase 14 U/L (6-35); Albumin Level 4.4 g/dL (3.5-5.1); Alkaline Phosphatase 91 U/L (38-126); Anion Gap 9 mmol/L (4-12); Aspartate Amino Transferase 19 U/L (14-36); Bilirubin,Total 0.7 mg/dL (0.2-1.3); Blood Urea Nitrogen 14 mg/dL (7-17); Calcium 9.4 mg/dL (8.4-10.2); Carbon Dioxide 25 mmol/L (22-30); Chloride 105 mmol/L (98-107); Estimated CRCL calculation 48 ml/min; Estimated Glomerular Filt Rate > 60; Glucose 127 mg/dL (65-110); Potassium 4.3 mmol/L (3.4-5.0); Sodium 139 mmol/L (137-145)
[2023-10-07] MEDS: IPRATROPIUM 0.5 MG/ALBUTEROL SULFATE 2.5 MG AMPUL.NEB 3 ML 12 ML INHALATION (20:08)
[2023-10-07 20:10] LABS: NT Pro B Type Natriuretic Pept 216 pg/mL (19.9-100); Troponin I < 0.012 ng/mL (0.000-0.034)
[2023-10-07 20:19] LABS: INR 1.1; Prothrombin Time 14.5 Seconds (11.1-14.7)
[2023-10-07 20:21] LABS: Partial Thromboplastin Time 34.6 Seconds (22.3-36.8)
[2023-10-07 20:25] LABS: Influenza A QL RT-PCR Negative (Negative); Influenza B QL RT-PCR Negative (Negative); RSV RNA, RT-PCR Negative (Negative); SARS-CoV-2 RNA PCR Negative (Negative)
[2023-10-07 20:35] LABS: D Dimer 1.01 ug/mL (<0.48)
--- NOTE | 2023-10-07 20:41 | ED.GENADULT ---
HPI - General Adult General Chief complaint: Shortness of Breath/Dyspnea Stated complaint: SOB Time Seen by Provider: 10/07/23 19:13 History of Present Illness HPI narrative: This is a 68 old female presenting ED with a chief complaint shortness of breath. For last 4-5 days she has felt sick with symptoms including fever, chills, body aches, headaches, shortness of breath and productive cough. No chest pain abdominal pain nausea and diarrhea. See notes she had dysuria several days ago. Patient still smokes cigarettes. She has been using her breathing treatments as instructed. Related Data Home Medications Medication Instructions Recorded Confirmed aspirin 81 mg tablet,delayed 81 mg PO DAILY 05/07/19 12/25/22 release (Adult Low Dose Aspirin) cholecalciferol (vitamin D3) 25 2,000 unit PO DAILY 05/07/19 12/25/22 mcg (1,000 unit) capsule Allergies Allergy/AdvReac Type Severity Reaction Status Date / Time Sulfa (Sulfonamide Allergy Unknown n/a Verified 12/25/22 13:01 Antibiotics) [facility] Past Medical History Medical History Acquired hypothyroidism Colon cancer screening COPD (chronic obstructive pulmonary disease) CVA (cerebral vascular accident) Dyspnea Hyperlipidemia Hypothyroidism Lung nodule Major depressive disorder Migraine Osteoporosis Osteoporosis without current pathological fracture Pulmonary emphysema Surgical History Surgical History History of ankle surgery History of catheter-based closure of atrial septal defect Family History Family History Mother Hypertension Breast cancer TIA (transient ischemic attack) Brain aneurysm Father Family history of cardiovascular disease Hypertension Sibling Dementia Social History Social History Smoking packs per day: 1 Smoking cigarettes per day: 20.0 Years smoked: 40 Smoking pack-years: 40.00 Smoking status: Current every day smoker Tobacco type: cigarettes Alcohol intake: never Substance use: never Substance use type: does not use Lack of Transportation: No Lack of Food: Never True Current Housing: I Have Housing Concerned About Future Housing: No Difficulty Paying Gas/Electric Bills: No Difficulty Paying for Meds: No Currently Unemployed: No Education: Trade/Vocational Certificate Difficulty w/ Childcare or Family Care: No Living arrangements: with family Spiritual care concerns: No Exam Narrative: APPEARANCE: patient appear older than her stated age. Head: atraumatic. EYES: EOMI, NOSE: Atraumatic NECK: Trachea midline RESPIRATORY: Increased rate of breathing, decreased lung sounds in all lambert, no significant wheezing CARDIOVASCULAR: tachycardic, no peripheral edema hypoxic on room ABDOMINAL: soft nontender MUSCULOSKELETAl: No obvious deformities NEURO: Alert. Moving 4/4 extremities SKIN:: Warm, dry. Normal color PSYCHIATRIC: Normal affect Course Vital Signs Vital signs: Vital Signs Temperature 98.8 F 10/07/23 19:09 Pulse Rate 132 H 10/07/23 19:09 Respiratory Rate 34 H 10/07/23 19:09 Blood Pressure 139/93 H 10/07/23 19:09 Pulse Oximetry 80 L 10/07/23 19:09 Oxygen Delivery Room Air 10/07/23 19:09 Temperature 99.0 F 10/07/23 19:48 Pulse Rate 125 H 10/07/23 21:15 Respiratory Rate 20 10/07/23 21:15 Blood Pressure 143/128 H 10/07/23 21:00 Pulse Oximetry 96 10/07/23 21:15 Oxygen Delivery Nasal Cannula 10/07/23 19:50 Oxygen Flow Rate 3 10/07/23 19:50 Medical Decision Making MDM Narrative Medical decision making narrative: -Course: 68-year-old female presenting with 5 days of flu-like symptoms and hypoxia. White count 19. 80% on room air which improved to 94 on nasal cannula. tachycardic. Patient given b
--- NOTE | 2023-10-07 22:02 | PC.NURSE ---
Patient in CT at this time. Patient on transport monitor.
[2023-10-07] MEDS: AZITHROMYCIN 500 MG/NS 250 ML 500 MG/250 ML BAG 250 MG IVPB (22:11)
--- NOTE | 2023-10-07 22:55 | PM.IMHP ---
H&P: HPI History of Present Illness Date/Time: 10/07/23 22:55 Chief Complaint: shortness of breath Narrative: This is a 68-year-old female with past medical history significant for COPD/emphysema, tobacco dependence, hypothyroidism, migraine, major depressive disorder, osteoporosis. patient presents to the emergency room due to shortness of breath, worsening for the last 2 weeks or so, sputum production brownish sputum, copious amount, body aches, fevers, chills, poor appetite. When patient presented to the emergency room her oxygen saturation was low started on supplemental oxygen by nasal cannula. Preliminary workup was significant for CTA of the chest ruled out acute pulmonary embolism. EXAMINATION: XR chest 1V portable DATE: 10/07/2023 19:35 INDICATION: Shortness of breath. TECHNIQUE: A single frontal view of the chest was obtained. COMPARISON: Chest 2 views 12/25/2022, chest CT 11/14/2021 FINDINGS: There are lucencies and interstitial opacities in the lungs, consistent with emphysema. No pleural effusion or pneumothorax. The heart size is normal. There is an interatrial closure device in the heart. IMPRESSION: 1. Emphysema. Review of Systems Review of Systems: Shortness of breath, productive cough, chills, poor appetite, body aches and pains. Constitutional: Constitutional: Reports chills, Reports fatigue, Reports fever(s), Reports malaise, Reports night sweats and Reports poor appetite Eyes: Eyes: Denies change in vision ENT: Denies dysphagia and Denies odynophagia Cardiovascular: Cardiovascular: Denies chest pain, Denies radiating jaw, neck or arm pain and Denies palpitations Respiratory: Respiratory: Reports change in phlegm color, Reports cough, Reports excessive phlegm production, Reports dyspnea and Reports wheezing Gastrointestinal: Gastrointestinal: Denies abdominal pain, Denies diarrhea, Denies nausea and Denies vomiting Genitourinary: Genitourinary: Denies dysuria Musculoskeletal: Musculoskeletal: Reports myalgias Integumentary/Breasts: Skin/Breast: Denies rash Neurologic: Denies focal weakness and Denies Sensory deficit (Neuro) Psychiatric: Psychiatric: Reports no additional psychiatric complaints and Reports as per HPI Endocrine: Endocrine: Denies cold intolerance, Denies fatigue, Denies flushing, Denies heat intolerance, Denies polyphagia, Denies polydipsia, Denies polyuria and Denies palpitations Hematologic/Lymphatic: Hematologic/Lymphatic: Reports no additional hematologic/lymphatic complaints and Reports as per HPI Allergic/Immunologic: Allergic/Immunologic: Reports no additional allergic/immunologic complaints and Reports as per HPI [facility] Past Medical History Medical History (Updated 10/08/23 @ 00:57 by Lizet Ramirez MD) Acquired hypothyroidism Colon cancer screening COPD (chronic obstructive pulmonary disease) CVA (cerebral vascular accident) Dyspnea Hyperlipidemia Hypothyroidism Lung nodule Major depressive disorder Migraine Osteoporosis Osteoporosis without current pathological fracture Pulmonary emphysema Surgical History Surgical History History of ankle surgery History of catheter-based closure of atrial septal defect Family History Family History Mother Hypertension Breast cancer TIA (transient ischemic attack) Brain aneurysm Father Family history of cardiovascular disease Hypertension Sibling Dementia Social History Social History Smoking packs per day: 1 Smoking cigarettes per day: 20.0 Years smoked: 40 Smoking pack-years: 40.00 Smoking status: Current every day smoker Tobacco type: cigarettes Alcohol intake: never Substance use: never Substance use type: does not use Lack of Transportation: No Lack of Food: Never True Current Housing: [facility]
[2023-10-07] MEDS: LACTATED RINGERS 1,000 ML 125 ML IV CONT (23:57)
[2023-10-08] VITALS (20 sets, daily range): BP systolic 103–130; BP diastolic 42–75; PULSE 60–103; RESP 16–22; TEMP 35.8–36.7; O2SAT 93–96; BMI 23.4
--- NOTE | 2023-10-08 01:10 | ADMGEN ---
This patient, Lucía Olivo, was admitted to Medical Room 340-01. Patient/family oriented to hospital policies and general routines including ID bracelet, bed and alarms, visiting hours, pain management, procedures, bathroom and other care routines, personal items, smoking policy, room service/diet, and visiting hours. Information on how to activate the Rapid Response Team has been discussed. Patient/Family are encouraged to report perceived risks to care and to ask questions if they do not understand what they are told or what they should do.
[2023-10-08 02:33] LABS: Troponin I < 0.012 ng/mL (0.000-0.034)
[2023-10-08] MEDS: IPRATROPIUM 0.5 MG/ALBUTEROL SULFATE 2.5 MG AMPUL.NEB 3 ML INHALATION ×4 (02:40→20:40)
[2023-10-08] MEDS: methylPREDNISolone SOD SUCC 125 MG VIAL 60 MG IV PUSH ×4 (05:16→23:53)
[2023-10-08] MEDS: LACTATED RINGERS 1,000 ML 125 ML IV CONT (08:31)
[2023-10-08 08:48] LABS: Appearance Urine Clear (Clear); Bacteria Urine None Seen /hpf; Bilirubin Urine Negative (Negative); Blood Urine Negative (Negative); Color Urine Yellow (Yellow); Glucose Urine UA Negative (Negative); Ketones Urine Trace mg/dL (Negative); Leukocyte Esterase Ur Negative LEU/UL (Negative); Nitrate Urine Negative (Negative); Non Pathogenic Casts 0-2; Protein Urine Trace mg/dL (Negative); RBC Urine 0-2 /hpf (0-2); Squamous Epithelial Cell Urine None Seen /hpf (Few); Urobilinogen Urine 0.2 mg/dL (<2.0); WBC Urine 0-5 /hpf (0-3); pH Urine 5.5 (5.0-9.0)
[2023-10-08 08:55] LABS: Add Urine Microscopic? YES; Specific Grav Ur 1.062 (1.001-1.035)
--- NOTE | 2023-10-08 16:25 | PM.IMPN ---
Progress Note: A&P Assessment and Plan (1) COPD (chronic obstructive pulmonary disease): Code(s): J44.9 - Chronic obstructive pulmonary disease, unspecified Status: Acute (2) Pneumonia: Code(s): J18.9 - Pneumonia, unspecified organism Status: Acute (3) Sepsis: Code(s): A41.9 - Sepsis, unspecified organism Status: Acute (4) Tobacco abuse: Code(s): Z72.0 - Tobacco use Status: Acute (5) Acute hypoxemic respiratory failure: Code(s): J96.01 - Acute respiratory failure with hypoxia Status: Acute Plan This is a pleasant 68-year-old female with a history of active tobacco abuse, COPD, depression, hyperlipidemia, hypertension, osteoporosis, hypothyroidism who presents with 4-5 days of fevers chills body aches headache shortness of breath and productive cough worse than her baseline. On 10/07/2023 in [place] ER she was found to have community-acquired pneumonia with hypoxic respiratory failure and acute COPD exacerbation. Subsequently admitted for further management. Acute hypoxic respiratory failure -improving. Now on 3 L nasal cannula and breathing well. Change to wean as tolerated. Goal to saturation 88-92%. -quad viral screen negative Sepsis without shock -elevated white count. Continue to trend. Likely due to community-acquired pneumonia. -pending sputum and blood cultures. Acute COPD exacerbation -symptomatic she is doing much better but she still is coarse breath sounds and wheezing. -continue scheduled DuoNebs, continue Solu-Medrol. Continue antibiotics Community-acquired pneumonia -continue ceftriaxone and azithromycin. -pending sputum culture History of hypertension -apparently at goal. She does not appear to be taking anything at home Active tobacco abuse -counseled extensively. The patient is willing to quit but wants to do so on her own. She does not want nicotine patch or any other resource at this time. FEN: Saline lock IV. Heart healthy diet. GI prophylaxis: Not indicated DVT prophylaxis: Lovenox 40 mg subQ q.day Lines: Peripheral IV Code Status: Full code Dispo: Stable on medical floor. Subjective Date/time seen: 10/08/23 16:25 Interval history: No acute overnight events. The patient reports she is doing much better. Review of Systems Review of Systems: All systems reviewed & are unremarkable except as noted in HPI and below (Subjective) Exam Const: General: comfortable and no acute distress Eyes: Pupils: Equal, round and reactive pupils present Neck: Neck: supple Resp: Effort & Inspection: normal respiratory effort Other: Diminished lung sounds with coarse breath sounds and expiratory wheeze. Cardio: Rate: regular rate Rhythm: regular rhythm GI: Inspection: non-distended GI Palp: Yes Soft to palpation and No Tenderness to palpation present (GI) Extrem: General: no edema Objective Data Vital Signs Vital Signs: Vital Signs - 24 hr 10/07/23 19:09 10/07/23 19:12 10/07/23 19:48 Temperature 98.8 F 99.0 F Pulse Rate 132 H 120 H Respiratory Rate 34 H 20 Blood Pressure 139/93 H 135/85 Pulse Oximetry 80 L 97 99 Oxygen Delivery Room Air Nasal Cannula Oxygen Flow Rate 3 10/07/23 19:50 10/07/23 20:08 10/07/23 20:08 Temperature Pulse Rate 114 H 113 H Respiratory Rate 22 H 24 H Blood Pressure Pulse Oximetry 95 100 Oxygen Delivery Nasal Cannula Oxygen Flow Rate 3 10/07/23 20:15 10/07/23 20:16 10/07/23 20:34 Temperature Pulse Rate 117 H 116 H 114 H Respiratory Rate 22 H 21 H 19 Blood Pressure 140/79 Pulse Oximetry 100 100 Oxygen Delivery Oxygen Flow Rate 10/07/23 20:45 10/07/23 20:46 10/07/23 21:00 Temperature Pulse Rate 121 H 122 H 130 H Respiratory Rate 33 H 25 H 29 H Blood Pressure 126/60 143/128 H Pulse Oximetry 100 100 100 Oxygen Delivery Oxygen Flow Rate 10/07/23 21:01 10/07/23 21:15 10/07/23 22:35 Temperature Pulse R
[2023-10-08] MEDS: AZITHROMYCIN 500 MG/NS 250 ML 500 MG/250 ML BAG 250 MG IVPB (19:54)
[2023-10-09] VITALS (12 sets, daily range): BP systolic 105–121; BP diastolic 56–60; PULSE 60–105; RESP 16–20; TEMP 36.1–36.8; O2SAT 91–96
[2023-10-09] MEDS: methylPREDNISolone SOD SUCC 125 MG VIAL 60 MG IV PUSH ×3 (05:23→18:29)
[2023-10-09 05:54] LABS: Basophils Percent Auto 0.1 % (0.2-1.2); Hematocrit 32.7 % (37.0-47.0); Hemoglobin 10.4 g/dL (12.0-15.0); Immature Granulocyte Absolute 0.14 K/mm3 (0.00-0.031); Lymphocytes Absolute Auto 0.71 K/mm3 (0.9-3.2); Lymphocytes Percent Auto 4.9 % (18.3-44.2); Mean Corpuscular HGB Conc 31.8 g/dl (32-36); Mean Corpuscular Hemoglobin 30.7 pg (26-34); Mean Corpuscular Volume 96.5 fl (80-100); Mean Platelet Volume 11.2 fl (7.4-10.4); Monocytes Absolute Auto 0.3 K/mm3 (0.1-0.6); Monocytes Percent Auto 2.1 % (2.6-8.5); Neutrophils Absolute Auto 13.3 K/mm3 (1.3-6.7); Neutrophils Percent Auto 91.9 % (45.5-73.1); Platelet Count Result 234 k/mm3 (150-375); Red Blood Count 3.39 M/mm3 (4.2-5.4); Red Cell Distribution Width 14.2 % (11.5-14.5); White Blood Count 14.5 K/mm3 (4.5-10.0)
[2023-10-09 06:14] LABS: Anion Gap 6 mmol/L (4-12); Blood Urea Nitrogen 18 mg/dL (7-17); Calcium 8.7 mg/dL (8.4-10.2); Carbon Dioxide 23 mmol/L (22-30); Chloride 108 mmol/L (98-107); Estimated CRCL calculation 56 ml/min; Estimated Glomerular Filt Rate > 60; Glucose 130 mg/dL (65-110); Magnesium 2.2 mg/dL (1.6-2.3); Potassium 4.3 mmol/L (3.4-5.0); Sodium 137 mmol/L (137-145)
[2023-10-09 06:31] LABS: Procalcitonin 0.2 ng/mL
[2023-10-09] MEDS: ENOXAPARIN 40 MG/0.4 ML SYRINGE SUB-Q (08:29)
[2023-10-09] MEDS: IPRATROPIUM 0.5 MG/ALBUTEROL SULFATE 2.5 MG AMPUL.NEB 3 ML INHALATION ×3 (09:36→19:09)
--- NOTE | 2023-10-09 16:03 | PM.IMPN ---
Progress Note: A&P Assessment and Plan (1) COPD (chronic obstructive pulmonary disease): Code(s): J44.9 - Chronic obstructive pulmonary disease, unspecified Status: Acute (2) Pneumonia: Code(s): J18.9 - Pneumonia, unspecified organism Status: Acute (3) Sepsis: Code(s): A41.9 - Sepsis, unspecified organism Status: Acute (4) Tobacco abuse: Code(s): Z72.0 - Tobacco use Status: Acute (5) Acute hypoxemic respiratory failure: Code(s): J96.01 - Acute respiratory failure with hypoxia Status: Acute Plan This is a pleasant 68-year-old female with a history of active tobacco abuse, COPD, depression, hyperlipidemia, hypertension, osteoporosis, hypothyroidism who presents with 4-5 days of fevers chills body aches headache shortness of breath and productive cough worse than her baseline. On 10/07/2023 in [place] ER she was found to have community-acquired pneumonia with hypoxic respiratory failure and acute COPD exacerbation. Subsequently admitted for further management. On 10/08 the patient is doing better. We have attempted to wean down her nasal cannula completely but she still dropped to 88% at rest. She is on 2-3 L and we will continue to wean as tolerated. We will continue Solu-Medrol and neb treatments along with the antibiotics to treat acute COPD and community-acquired pneumonia. Start melatonin 5 mg q.h.s.. complains the patient has had insomnia for a long time. We talked about her behaviors and habits. Adjusted she quit smoking as already discussed and in addition to that to stop Screen time 2:00 a.m. before bed and avoid caffeine after noon. Hopefully home tomorrow. We may perform a walk test to assess need for home oxygen. Acute hypoxic respiratory failure -improving. Now on 3 L nasal cannula and breathing well. Change to wean as tolerated. Goal to saturation 88-92%. -quad viral screen negative Sepsis without shock -elevated white count. Continue to trend. Likely due to community-acquired pneumonia. -pending sputum and blood cultures. Acute COPD exacerbation -symptomatic she is doing much better but she still is coarse breath sounds and wheezing. -continue scheduled DuoNebs, continue Solu-Medrol. Continue antibiotics Community-acquired pneumonia -continue ceftriaxone and azithromycin. -pending sputum culture History of hypertension -apparently at goal. She does not appear to be taking anything at home Active tobacco abuse -counseled extensively. The patient is willing to quit but wants to do so on her own. She does not want nicotine patch or any other resource at this time. FEN: Saline lock IV. Heart healthy diet. GI prophylaxis: Not indicated DVT prophylaxis: Lovenox 40 mg subQ q.day Lines: Peripheral IV Code Status: Full code Dispo: Stable on medical floor. Subjective Date/time seen: 10/09/23 16:03 Interval history: No acute overnight events. The is at bedside today. He reports the patient has insomnia she will be walking in the middle the night and unable to sleep. The patient herself denies any anxiety but she does report being on her phone all night as well as drinking caffeinated soda as well as smoking cigarettes. Review of Systems Review of Systems: All systems reviewed & are unremarkable except as noted in HPI and below (Subjective) Exam Const: General: comfortable and no acute distress Eyes: Pupils: Equal, round and reactive pupils present Neck: Neck: supple Resp: Effort & Inspection: normal respiratory effort Other: Diminished lung sounds with coarse breath sounds and a scant expiratory wheeze. Cardio: Rate: regular rate Rhythm: regular rhythm GI: Inspection: non-distended GI Palp: Yes Soft to palpation and No Tenderness to palpation present (GI) Extrem: General: no edema Objective Data Vital Signs Vital Signs: Vital Signs - 24 hr 10/08/23 17:18 10/08/23 20:00 10/08/23 2
[2023-10-09] MEDS: AZITHROMYCIN 500 MG/NS 250 ML 500 MG/250 ML BAG 250 MG IVPB (20:14)
[2023-10-09] MEDS: MELATONIN 5 MG TABLET PO (20:15)
[2023-10-10] VITALS (15 sets, daily range): BP systolic 128–130; BP diastolic 58–61; PULSE 64–108; RESP 16–18; TEMP 36.1–36.6; O2SAT 87–97
[2023-10-10] MEDS: methylPREDNISolone SOD SUCC 125 MG VIAL 60 MG IV PUSH ×3 (00:08→12:15)
[2023-10-10] MEDS: IPRATROPIUM 0.5 MG/ALBUTEROL SULFATE 2.5 MG AMPUL.NEB 3 ML INHALATION ×3 (02:07→13:24)
[2023-10-10 05:33] LABS: Basophils Percent Auto 0.1 % (0.2-1.2); Hematocrit 34.7 % (37.0-47.0); Hemoglobin 11.1 g/dL (12.0-15.0); Immature Granulocyte Absolute 0.62 K/mm3 (0.00-0.031); Immature Granulocyte Percent A 4.1 % (0-0.5); Lymphocytes Percent Auto 5.3 % (18.3-44.2); Mean Corpuscular Hemoglobin 31.1 pg (26-34); Mean Corpuscular Volume 97.2 fl (80-100); Monocytes Absolute Auto 0.3 K/mm3 (0.1-0.6); Monocytes Percent Auto 1.8 % (2.6-8.5); Neutrophils Absolute Auto 13.4 K/mm3 (1.3-6.7); Neutrophils Percent Auto 88.7 % (45.5-73.1); Platelet Count Result 265 k/mm3 (150-375); Red Blood Count 3.57 M/mm3 (4.2-5.4); Red Cell Distribution Width 14.2 % (11.5-14.5); White Blood Count 15.1 K/mm3 (4.5-10.0)
[2023-10-10] MEDS: LEVOTHYROXINE SODIUM 50 MCG TABLET PO (05:46)
[2023-10-10 05:52] LABS: Anion Gap 10 mmol/L (4-12); Blood Urea Nitrogen 25 mg/dL (7-17); Calcium 8.6 mg/dL (8.4-10.2); Carbon Dioxide 24 mmol/L (22-30); Chloride 106 mmol/L (98-107); Estimated CRCL calculation 48 ml/min; Estimated Glomerular Filt Rate > 60; Glucose 134 mg/dL (65-110); Magnesium 2.1 mg/dL (1.6-2.3); Potassium 4.1 mmol/L (3.4-5.0); Sodium 140 mmol/L (137-145)
[2023-10-10 06:03] LABS: Procalcitonin 0.2 ng/mL
[2023-10-10] MEDS: EZETIMIBE 10 MG TABLET PO (08:45)
[2023-10-10] MEDS: CHOLECALCIFEROL 1,000 UNITS TABLET 1000 UNITS PO (08:45)
[2023-10-10] MEDS: ASPIRIN 81 MG ENTERIC TABLET PO (08:45)
[2023-10-10] MEDS: SERTRALINE HCL 50 MG TABLET PO (08:45)
[2023-10-10] MEDS: ENOXAPARIN 40 MG/0.4 ML SYRINGE SUB-Q (08:45)
--- NOTE | 2023-10-10 10:33 | HOMEO2EVAL ---
Evaluation was performed at [facility] Home Oxygen Evaluation RC: Home Oxygen (O2) Evaluation Start: 10/10/23 07:40 Freq: ONCE Status: Active Protocol: RPE Activity Type Activity Date Activity User E-sign Co-sign Detail Recorded Client Recorded Date Recorded By Document 10/10/23 10:00 [email or web address] 10/10/23 10:33 PKH Document 10/10/23 10:05 [email or web address] [email or web address] 10/10/23 10:33 PKH Document 10/10/23 10:10 PK [email or web address] 10/10/23 10:33 PK Document 10/10/23 10:15 PK [email or web address] 10/10/23 10:33 PK Document 10/10/23 10:30 PK [email or web address] 10/10/23 10:33 PKH 10/10/23 10/10/23 10/10/23 10:00 10:05 10:10 Home O2 Evaluation [Oxygen] -Test Phase Resting Exercise Exercise -Oxygen Delivery Room Air Room Air Nasal Cannula -Oxygen Flow Rate (L/min) 1 [Pulse Oximetry] -Pulse Oximetry (90-100 %) 92 87 L 88 L [Pulse Rate] -Pulse Rate (60-100 beats/min) 93 107 H 108 H [Evaluation] -Activity Tolerance [Charges] -Evaluation Charges O2 Evaluation by Pulmonary 10/10/23 10/10/23 10:15 10:30 Home O2 Evaluation [Oxygen] -Test Phase Exercise Resting -Oxygen Delivery Nasal Cannula Room Air -Oxygen Flow Rate (L/min) 2 [Pulse Oximetry] -Pulse Oximetry (90-100 %) 90 91 [Pulse Rate] -Pulse Rate (60-100 beats/min) 106 H 88 [Evaluation] -Activity Tolerance Good [Charges] -Evaluation Charges
--- NOTE | 2023-10-10 10:41 | HOMEO2EVAL ---
Evaluation was performed at [facility] Home Oxygen Evaluation RC: Home Oxygen (O2) Evaluation Start: 10/10/23 07:40 Freq: ONCE Status: Active Protocol: RPE Activity Type Activity Date Activity User E-sign Co-sign Detail Recorded Client Recorded Date Recorded By Document 10/10/23 10:00 [email or web address] 10/10/23 10:33 PKH Document 10/10/23 10:05 [email or web address] [email or web address] 10/10/23 10:33 PKH Document 10/10/23 10:10 PK [email or web address] 10/10/23 10:33 PK Document 10/10/23 10:15 PK [email or web address] 10/10/23 10:33 PK Document 10/10/23 10:30 PK [email or web address] 10/10/23 10:33 PKH 10/10/23 10/10/23 10/10/23 10:00 10:05 10:10 Home O2 Evaluation [Oxygen] -Test Phase Resting Exercise Exercise -Oxygen Delivery Room Air Room Air Nasal Cannula -Oxygen Flow Rate (L/min) 1 [Pulse Oximetry] -Pulse Oximetry (90-100 %) 92 87 L 88 L [Pulse Rate] -Pulse Rate (60-100 beats/min) 93 107 H 108 H [Evaluation] -Activity Tolerance [Charges] -Evaluation Charges O2 Evaluation by Pulmonary 10/10/23 10/10/23 10:15 10:30 Home O2 Evaluation [Oxygen] -Test Phase Exercise Resting -Oxygen Delivery Nasal Cannula Room Air -Oxygen Flow Rate (L/min) 2 [Pulse Oximetry] -Pulse Oximetry (90-100 %) 90 91 [Pulse Rate] -Pulse Rate (60-100 beats/min) 106 H 88 [Evaluation] -Activity Tolerance Good [Charges] -Evaluation Charges
--- NOTE | 2023-10-10 14:37 | PM.DS ---
DS: Admitting Diagnosis Discharge Date October 10, 2023 Admitting Diagnosis Shortness of breath DS: Discharge Diagnosis Discharge Diagnosis (1) Acute hypoxemic respiratory failure: Code(s): J96.01 - Acute respiratory failure with hypoxia Status: Acute (2) COPD (chronic obstructive pulmonary disease): Code(s): J44.9 - Chronic obstructive pulmonary disease, unspecified Status: Acute (3) Pneumonia: Code(s): J18.9 - Pneumonia, unspecified organism Status: Acute (4) Sepsis: Code(s): A41.9 - Sepsis, unspecified organism Status: Acute DS: Summary Hospital Course Hospital Course: 68-year-old female with a history of active tobacco abuse, COPD, depression, hyperlipidemia, hypertension, osteoporosis, hypothyroidism presents with 4-5 days of fever chills body aches headache shortness of breath and productive cough worsen her baseline. She is treated with Solu-Medrol ceftriaxone and azithromycin for community-acquired pneumonia acute hypoxic respiratory failure and acute COPD exacerbation. On 10/09 she is stable for discharge to home. She will be discharged with inhaler, prednisone, Augmentin and oxygen therapy. She has been stable to 2 L by nasal cannula. Oxygen equipment is being supplied today to her home. She has been advised to follow with her PCP and creative recruiter for official PFTs. She is in understanding and agreement with this plan. As well, she understands adverse effects, risks, benefits of medications being prescribed. The patient was full code during her admission. Time Spent with Patient Time attestation: Total time spent providing and/or coordinating discharge services: Exam Const: General: comfortable and no acute distress Eyes: Pupils: Equal, round and reactive pupils present Neck: Neck: supple Resp: Effort & Inspection: normal respiratory effort Other: Diminished lung sounds with coarse breath sounds Cardio: Rate: regular rate Rhythm: regular rhythm GI: Inspection: non-distended GI Palp: Yes Soft to palpation and No Tenderness to palpation present (GI) Extrem: General: no edema DS: Data Data Completed and Pending Labs on day of discharge: Labs from last 24 hours 10/10/23 05:00 WBC 15.1 H RBC 3.57 L Hgb 11.1 L Hct 34.7 L MCV 97.2 MCH 31.1 MCHC 32.0 RDW 14.2 Plt Count 265 MPV 11.0 H Immature Gran % (Auto) 4.1 H Neut % (Auto) 88.7 H Lymph % (Auto) 5.3 L [place] % (Auto) 1.8 L Eos % (Auto) 0.0 Baso % (Auto) 0.1 L Lymph # (Auto) 0.80 L [place] # (Auto) 0.3 Eos # (Auto) 0.0 Baso # (Auto) 0.0 Abs Immat Gran (auto) 0.62 H Absolute Neuts (auto) 13.4 H Absolute Nucleated RBC 0.000 Nucleated RBC % 0.0 Sodium 140 Potassium 4.1 Chloride 106 Carbon Dioxide 24 Anion Gap 10 BUN 25 H Creatinine 0.70 Estim Creat Clear Calc 48 Estimated GFR > 60 Glucose 134 H Calcium 8.6 Magnesium 2.1 Procalcitonin 0.2 Preliminary micro results at discharge 10/08/23 19:59 Sputum Culture - Preliminary Sputum 10/07/23 19:39 Blood Culture - Preliminary Blood 10/07/23 20:04 Blood Culture - Preliminary Blood Discharge Plan Discharge Attending physician on discharge: Carol Chow Discharging Clinician: Carol Chow Patient Disposition: Home, Self-Care Activity: may shower Diet: as tolerated Patient Instructions: Antibiotic Form, COPD (Chronic Obstructive Pulmonary Disease) (GEN) Stand Alone Forms: General Discharge Information Follow-up/Referrals: Myra Guy PERSONNEL [employer]ERKS SUPERVISOR [Primary Care Provider] - 2 Weeks (Follow-up on comorbidities. Follow-up for PFTs) Discharge Medications: New prednisone 50 mg tablet 50 mg PO DAILY Qty: 3 0RF amoxicillin-pot clavulanate 875-125 mg tablet 1 tablet PO Q12H 3 Days Qty: 6 0RF Continued (DME) Vortex Holding Chamber Spacer See Rx Instructions .ROUTE .MEDSUPPLY Qty: 1 0RF Rx Instructions: As directed albutero
== END 2023-10-10 15:51 | disposition home or self-care (01) | DRG 195 ==
LOC: ANHED 22:49 → ANH3MED 10-08 08:18
PROVIDERS: Student in an Organized Health Care Education/Training Program; Admitting Provider Internal Medicine; Emergency Provider Emergency Medicine; PCP Nurse Practitioner; Visit Provider General Practice
DX: J18.9 Pneumonia, unspecified organism (principal); J43.9 Emphysema, unspecified; E03.9 Hypothyroidism, unspecified; I10 Essential (primary) hypertension; F32.9 Major depressive disorder, single episode, unspecified; M81.0 Age-related osteoporosis without current pathological fracture; E78.5 Hyperlipidemia, unspecified; R91.1 Solitary pulmonary nodule; F17.210 Nicotine dependence, cigarettes, uncomplicated; Z86.73 Personal history of transient ischemic attack (TIA), and cerebral infarction without residual deficits; Z20.822 Contact with and (suspected) exposure to COVID-19
CPT/HCPCS: 36415; 71045; 71275; 80048; 80053; 81001; 83605; 83735; 83880; 84145; 84484; 85025; 85380; 85610; 85730; 87040; 87070; 87205; 87637; 93005; 94618; 94640; 96361; 96365; 96367; 96372; 96375; 96376; 99285; A9270; G0378; J0456; J0696; J1100; J1650; J2919; J3475; J7030; J7120; Q9967

== ENCOUNTER 2023-10-17 08:23 | Outpatient (CLI) | payer MEDICARE, SELFPAY ==
[2023-10-17 08:49] LABS: Basophils Percent Auto 0.2 % (0.2-1.2); Eosinophils Absolute Auto 0.2 K/mm3 (0-0.3); Eosinophils Percent Auto 1.2 % (0-4.4); Hematocrit 43.9 % (37.0-47.0); Hemoglobin 13.5 g/dL (12.0-15.0); Immature Granulocyte Absolute 0.12 K/mm3 (0.00-0.031); Lymphocytes Absolute Auto 1.55 K/mm3 (0.9-3.2); Lymphocytes Percent Auto 12.8 % (18.3-44.2); Mean Corpuscular HGB Conc 30.8 g/dl (32-36); Mean Corpuscular Volume 97.6 fl (80-100); Monocytes Absolute Auto 0.8 K/mm3 (0.1-0.6); Monocytes Percent Auto 6.9 % (2.6-8.5); Neutrophils Absolute Auto 9.5 K/mm3 (1.3-6.7); Neutrophils Percent Auto 77.9 % (45.5-73.1); Platelet Count Result 256 k/mm3 (150-375); Red Cell Distribution Width 14.6 % (11.5-14.5); White Blood Count 12.1 K/mm3 (4.5-10.0)
== END 2023-10-17 08:24 | disposition home or self-care (01) ==
LOC: ANHLAB 08:26
PROVIDERS: PCP Nurse Practitioner; Visit Provider General Practice
DX: A41.9 Sepsis, unspecified organism (principal)
CPT/HCPCS: 36415; 85025

== ENCOUNTER 2023-10-19 13:14 | Outpatient (CLI) | payer MEDICARE, SELFPAY ==
--- NOTE | ~2023-10-19 | CT_ITS ---
CT Scan of the Chest without Contrast: Clinical Indication: Lung cancer screening, nicotine dependence Technique: Contiguous sections were acquired throughout the chest without intravenous contrast. Dose reduction technique was used on this scan by utilizing automated exposure control and iterative recon struction technique. The dose-length product (DLP) was 56.53 mGy-cm. COMPARISON: 10/07/2023 Findings: There is no evidence of any significant mediastinal, hilar or axillary lymphadenopathy. The mediastin al soft tissues appear normal. There is no evidence of pleural or pericardial effusion. The lungs are clear. No pulmonary nodules or infiltrates are noted. Images through the upper abdomen reveal no abnormalities. Impression: Lung RADS 1: Negative. 12 month follow-up screening CT advised. Reviewed, dictated and finalized at location . Impression: Lung RADS 1: Negative. 12 month follow-up screening CT advised.
== END 2023-10-19 13:15 | disposition home or self-care (01) ==
LOC: ANHIMG 13:14
PROVIDERS: PCP Nurse Practitioner; Visit Provider Nurse Practitioner
DX: Z12.2 Encounter for screening for malignant neoplasm of respiratory organs (principal); Z87.891 Personal history of nicotine dependence
CPT/HCPCS: 71271

== ENCOUNTER 2023-11-20 09:01 | Outpatient (CLI) | payer MEDICARE, SELFPAY ==
[2023-11-20 09:26] LABS: Basophils Percent Auto 0.5 % (0.2-1.2); Eosinophils Absolute Auto 0.1 K/mm3 (0-0.3); Hematocrit 42.7 % (37.0-47.0); Hemoglobin 13.3 g/dL (12.0-15.0); Immature Granulocyte Absolute 0.02 K/mm3 (0.00-0.031); Immature Granulocyte Percent A 0.3 % (0-0.5); Lymphocytes Percent Auto 14.3 % (18.3-44.2); Mean Corpuscular HGB Conc 31.1 g/dl (32-36); Mean Corpuscular Hemoglobin 30.2 pg (26-34); Mean Corpuscular Volume 96.8 fl (80-100); Mean Platelet Volume 10.6 fl (7.4-10.4); Monocytes Absolute Auto 0.5 K/mm3 (0.1-0.6); Neutrophils Absolute Auto 5.9 K/mm3 (1.3-6.7); Neutrophils Percent Auto 76.9 % (45.5-73.1); Platelet Count Result 201 k/mm3 (150-375); Red Blood Count 4.41 M/mm3 (4.2-5.4); Red Cell Distribution Width 14.1 % (11.5-14.5); White Blood Count 7.7 K/mm3 (4.5-10.0)
== END 2023-11-20 09:02 | disposition home or self-care (01) ==
PROVIDERS: PCP Nurse Practitioner; Visit Provider Nurse Practitioner
DX: J43.9 Emphysema, unspecified (principal); D72.829 Elevated white blood cell count, unspecified
CPT/HCPCS: 36415; 85025

== ENCOUNTER 2024-01-08 09:51 | Outpatient (CLI) | payer MEDICARE, SELFPAY ==
--- NOTE | 2024-01-15 13:37 | WPDPFTINT ---
PFT Procedure Performed PFT Procedure Performed Spirometry with Pre/Post Bronchodilator Plethysmography (Lung Vol) Diffusing Cap (DLCO) Flow Vol Loop PFT Interpretation DOS: 01/08/2024 REQUESTING: Giulia Yung PA-C REASON FOR TESTING: COPD PULMONARY FUNCTION TESTS Results are reliable and reproducible. Repeatability of spirometry FEV1 maneuver pre and post bronchodilator is Grade A. Spirometry: The pre-bronchodilator FEV1 is 0.66 L, 34%, severely decreased. The pre-bronchodilator FVC is 1.56 L, 64%, decreased. The FEV1/FVC ratio is 42%, decreased. After bronchodilator, the FEV1 is 0.82 L, 42% predicted, 24% increase. The FVC is 2.12 L, 86%, increase of 36% and greater than 200 ml. The FEV1/FVC ratio is 39% after bronchodilator. Lung volumes: The total lung capacity is 5.12 L, 119%, normal. The residual volume is 3.15 L, 167%, consistent with air trapping. The RV/TLC is 62%, elevated, consistent with air trapping. Airway resistance is increased. Diffusion: DLCO is 8.0, 42%, severely decreased. The DLCO/VA is 2.58, 57%, below normal. Flow volume loop: The flow volume loop shows coving of the expiratory limb consistent with airflow obstruction. IMPRESSION: This study shows extremely severe obstructive ventilatory impairment, moderate air trapping and severe diffusion impairment without improvement when adjusted for alveolar volume. There is a robust response to bronchodilator administration. Compared to a prior study on 02/20/2019 there has been a significant drop in the FEV1, previously 1.17 L 60% predicted now 0.66 L, 34% predicted. There is still an obstructive ventilatory impairment. On the prior study the patient had significant hyperinflation with total lung capacity of 5.58 L, 130%, currently TLC is 5.12 L, 119% showing improvement in hyperinflation. There is still air trapping. Residual volume was 2.96 L, 183% and now is 3.15 L, 167% similar values. Diffusion has worsen, previously was 62% now 42%. This is consistent with progression of COPD however faster than expected. Clinical correlation is recommended. Kezia Zelaya MD
--- NOTE | 2024-01-15 13:47 | WPDSIXMINUTE ---
Six Minute Walk Procedure Procedure Performed Pulmonary Stress Test (6 min walk) Six Minute Walk Six Minute Walk: DATE OF SERVICE: 01/08/2024 REQUESTING: Giulia Yung PA-C REASON FOR TESTING: COPD SIX MINUTE WALK This test was conducted per ATS guidelines. The initial saturation was 97%, and initial heart rate was 69 beats per minute. The patient walked without stopping, no walking aids used and patient was breathing room air, completing 900 ft/ 274.3 m. The saturation at the end of testing was 93%, and the heart rate was 86%. The lowest saturation during this test was 91% at 3 minutes of exercise. IMPRESSION: This is a normal study. The patient did not require supplemental oxygen with exertion. Kezia Zelaya MD
== END 2024-01-08 09:52 | disposition home or self-care (01) ==
PROVIDERS: PCP Internal Medicine; Visit Provider Physician Assistant
DX: J44.9 Chronic obstructive pulmonary disease, unspecified (principal); J96.11 Chronic respiratory failure with hypoxia
CPT/HCPCS: 94060; 94618; 94726; 94729

== ENCOUNTER 2024-05-19 07:33 | Outpatient (CLI) | payer MEDICARE, SELFPAY ==
--- NOTE | ~2024-05-19 | DEXA_ITS ---
Bone Density Report Name: ARTHUR CODY Age: 68 Sex: Female Ethnicity: White Date of : 1955 Indication: osteopenia; height loss; Referring Provider: ERICKA GUERRA Study: Bone densitometry was performed. Exam Date: May 19, 2024 Accession number: [id number] Bone Density: Region BMD T-score Z-score Classification AP Spine(L1-L4) 0.736 -2.8 -0.9 Osteoporosis Femoral Neck (Left) 0.541 -2.8 -1.1 Osteoporosis Total Hip (Left) 0.650 -2.4 -1.0 Osteopenia Femoral Neck (Right) 0.561 -2.6 -0.9 Osteoporosis Total Hip (Right) 0.602 -2.8 -1.4 Osteoporosis Total Hip Mean 0.626 -2.6 -1.2 Osteoporosis World Health Organization criteria for BMD impression classify patients as: Normal (T-score at or above -1.0), Osteopenia (T-score between -1.0 and -2.5), or Osteoporosis (T-score at or below -2.5). 10-year Fracture Risk: FRAX not reported because: Some T-score for Spine Total or Hip Total or Femoral Neck at or below -2.5 Previous Exams: Region Exam Age BMD T-score BMD Change BMD Change Date g/cm2 vs Baseline vs Previous AP Spine (L1-L4) 05/19/2024 68 0.736 -2.8 -0.103 (-12.3% -0.103 (-12.3% 05/17/2022 66 0.839 -1.9 Total Hip(Left) 05/19/2024 68 0.650 -2.4 -0.050 (-7.2%) -0.050 (-7.2%) 05/17/2022 66 0.701 -2.0 Total Hip(Right) 05/19/2024 68 0.602 -2.8 -0.046 (-7.1%) -0.046 (-7.1%) 05/17/2022 66 0.648 -2.4 *Denotes significance at 95% confidence level, LSC for AP Spine = 0.022 g/cm2, LSC for Total Hip = 0.027 g/cm2 # Denotes dissimilar scan types or analysis methods Clinical Information Provided by Patient: Smokes Has used the following medications: Vitamin D Patient maximum height was 61 Menopause Age: 51 No regular weight bearing exercise Does not regularly consume dairy products Drinks caffeinated beverages Onset of menses at age 14 Number of children 2 Impression: The patient has osteoporosis, based on the Total Spine T-score. The patient has risk factors, including: smoking. No significant bone loss was observed. Discussion: INCREASED RISK OF FRACTURE. BONE DENSITY IS UNDESIRABLY LOW AT ONE OR MORE SKELETAL SITES, CONSISTENT WITH POSTMENOPAUSAL OSTEOPOROSIS. This patient's lowest T-score meets the World Health Organization's (WHO) criteria for osteoporosis at one or more sites (T-score -2.5 or below). In untreated patients, the risk of osteoporotic fracture increases approximately two-fold for each 1.0 SD decrease in T-score. Low bone density is not the only risk factor for fracture; also consider factors such as patient's age, frailty or poor health, risk of falling, risk of injury, previous osteoporotic fracture, family history of osteoporosis, cigarette smoking, low body weight, etc. Not everyone with low bone mineral density has osteoporosis; osteomalacia and other metabolic bone disorders should also be considered. Patients who have osteoporosis should be evaluated for specific diseases and conditions (secondary causes) that may cause or contribute to bone loss. The [place] [employer] Endocrinologists (AACE) and National Osteoporosis Foundation (NOF) recommend pharmacologic intervention for all postmenopausal women whose T-score is in this range. The patient should follow a healthful lifestyle (good nutrition with adequate calcium and vitamin D, and appropriate weight-bearing exercise). Follow-Up: Consider a repeat BMD and Vertebral Fracture Assessment (VFA) exam in 2 years or sooner if medically necessary, to reassess this patient's status. Reported by: L[place] on 05/19/2024 8:03:00 AM. Reviewed, dictated and finalized at location AMirna GOEL
--- OUTSIDE RECORDS SUMMARY | 2024-05-26 08:51 | XMS_ITS | Clinical Summary ---
Author Organization 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 Gender Identity Not on file Sexual Orientation Not on file Plan of Treatment Health Maintenance Due Date Last Done Comments DEXA Bone Density 1955 Hepatitis C Virus (HCV) Screening 1955 Colonoscopy 2001 Colorectal Cancer Screening 2001 Cologuard 2006 Immunochemical Fecal Occult Blood 2006 Mammogram 2006 Zoster Immunization (1 of 2) 2006 Pneumococcal Immunization (5 0+ years) (1 of 1 - PCV) 2021 SARS-COV-2 Immunization ( season) 2023 05/30/2021, 07/26/2020, 06/28/2020 Influenza Immunization (#1) 01/27/202402/26, 03/01/2017, 02/28/2015 DTaP/Tdap/Td Immunization Discontinued 01/01/2018 TdaP Immunization Completed 01/01/2018 Hepatitis B Immunization Aged Out No longer eligible based on patient's age to complete this topic Meningococcal Immunization (ACWY) Aged Out No longer eligible based on patient's age to complete this topic Rotavirus Immunization Aged Out No lo nger eligible based on patient's age to complete this topic
== END 2024-05-19 07:34 | disposition home or self-care (01) ==
LOC: ANHIMG 07:34
PROVIDERS: PCP Nurse Practitioner; Visit Provider Nurse Practitioner
DX: M81.0 Age-related osteoporosis without current pathological fracture (principal); M85.88 Other specified disorders of bone density and structure, other site; Z78.0 Asymptomatic menopausal state
CPT/HCPCS: 77080

== ENCOUNTER 2024-05-22 12:39 | Outpatient (CLI) | payer MEDICARE, SELFPAY ==
--- NOTE | ~2024-05-22 | XR_ITS ---
XR chest 2V Ordering provider: Saeed Nassar APRN History: 68 years Female with . R05.9 - Cough, unspecified, FEVER . Comparison: October 07, 2023 FINDINGS: MEDIASTINUM: The cardiac silhouette is not enlarged. Valve Prosthesis is seen in the heart. LUNGS: No infiltrates, effusions or pneumothorax. Underlying emphysematous changes. OTHER: No free air under the diaphragm. IMPRESSION: No acute cardiopulmonary pathology. Reviewed, dictated and finalized at location A. OR PARALEGAL
[2024-05-22 13:45] LABS: Influenza A QL RT-PCR Negative (Negative); Influenza B QL RT-PCR Negative (Negative); RSV RNA, RT-PCR Negative (Negative); SARS-CoV-2 RNA PCR Negative (Negative)
== END 2024-05-22 12:40 | disposition home or self-care (01) ==
LOC: ANHIMG 12:40
PROVIDERS: PCP Nurse Practitioner; Visit Provider Nurse Practitioner Family
DX: R50.9 Fever, unspecified (principal); R05.9 Cough, unspecified; Z20.822 Contact with and (suspected) exposure to COVID-19
CPT/HCPCS: 71046; 87637

== ENCOUNTER 2024-10-21 09:21 | Outpatient (CLI) | payer MEDICARE, SELFPAY ==
--- NOTE | ~2024-10-21 | CT_ITS ---
CT Scan of the Chest without Contrast: Clinical Indication: Lung cancer screening, nicotine dependence Technique: Contiguous sections were acquired throughout the chest without intravenous contrast. Dose reduction technique was used on this scan by utilizing automated exposure control and iterative recon struction technique. The dose-length product (DLP) was 62.78 mGy-cm. COMPARISON: 10/19/2023 Findings: There is no evidence of any significant mediastinal, hilar or axillary lymphadenopathy. The mediastin al soft tissues appear normal. There is no evidence of pleural or pericardial effusion. The lungs are clear. No pulmonary nodules or infiltrates are noted. Images through the upper abdomen reveal no abnormalities. Impression: Lung RADS 1: Negative. 12 month follow-up screening CT advised. Reviewed, dictated and finalized at location . Impression: Lung RADS 1: Negative. 12 month follow-up screening CT advised.
--- OUTSIDE RECORDS SUMMARY | 2024-10-21 09:31 | XMS_ITS | Clinical Summary ---
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 Gender Identity Not on file Sexual Orientation Not on file Plan of Treatment Health Maintenance Due Date Last Done Comments DEXA Bone Density 1955 Hepatitis C Virus (HCV) Screening 1955 Colonoscopy 2001 Colorectal Cancer Screening 2001 Cologuard 2006 Immunochemical Fecal Occult Blood 2006 Mammogram 2006 Pneumococcal Immunization (5 0+ years) (1 of 1 - PCV) 2006 Zoster Immunization (1 of 2) 2006 Influenza Immunization (#1) 01/27/202402/26, 03/01/2017, 02/28/2015 SARS-COV-2 Immunization ( season) 2024 05/30/2021, 07/26/2020, 06/28/2020 Respiratory Syncytial Virus (RSV) Immunization (Adult) (1 - 1-dose 75+ series) 2031 DTaP/Tdap/Td Immunization Discontinued 01/01/2018 TdaP Immunization Completed 01/01/2018 Hepatitis B Immunization Aged Out No longer eligible based on patient's age to complete this topic Meningococcal Immunization (ACWY) Aged Out No longer eligible based on patient's age to complete this topic Rotavirus Immunization Aged Out No lo nger eligible based on patient's age to complete this topic
== END 2024-10-21 09:22 | disposition home or self-care (01) ==
PROVIDERS: PCP Internal Medicine; Visit Provider Physician Assistant
DX: Z12.2 Encounter for screening for malignant neoplasm of respiratory organs (principal); Z87.891 Personal history of nicotine dependence
CPT/HCPCS: 71271

== ENCOUNTER 2024-10-28 09:32 | Outpatient (CLI) | payer MEDICARE, SELFPAY ==
--- NOTE | ~2024-10-28 | XR_ITS ---
EXAMINATION: XR chest 2V 10/28/2024 10:02 INDICATION: Dyspnea PROCEDURE: 2 view chest COMPARISON: 05/22/2020 FINDINGS: The lungs are clear. The cardiomediastinal silhouette is within normal limits. There are no pleural effusions. There is no pneumothorax suspected. There is a closure device overlying the h eart contour. The lungs are hyperinflated which is consistent with, but not diagnostic of chronic obs tructive pulmonary disease. IMPRESSION: 1: NO ACUTE CARDIOPULMONARY DISEASE. Reviewed, dictated and finalized at location A.
--- OUTSIDE RECORDS SUMMARY | 2024-10-28 09:52 | XMS_ITS | Clinical Summary ---
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
[2024-10-28 10:53] LABS: Influenza A QL RT-PCR Negative (Negative); Influenza B QL RT-PCR Negative (Negative); RSV RNA, RT-PCR Negative (Negative); SARS-CoV-2 RNA PCR Negative (Negative)
== END 2024-10-28 09:33 | disposition home or self-care (01) ==
LOC: ANHLAB 09:34
PROVIDERS: PCP Internal Medicine; Visit Provider Physician Assistant
DX: J44.0 Chronic obstructive pulmonary disease with (acute) lower respiratory infection (principal); J96.11 Chronic respiratory failure with hypoxia
CPT/HCPCS: 71046; 87637

== ENCOUNTER 2025-04-27 07:48 | Outpatient (CLI) | payer MEDICARE, SELFPAY ==
--- OUTSIDE RECORDS SUMMARY | 2025-04-27 07:53 | XMS_ITS | Clinical Summary ---
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 Gender Identity Not on file Sexual Orientation Not on file Plan of Treatment Health Maintenance Due Date Last Done Comments Hepatitis C Virus (HCV) Screening 1955 Cologuard 2001 Colonoscopy 2001 Colorectal Cancer Screening 2001 Immunochemical Fecal Occult Blood 2001 Pneumococcal Immunization (5 0+ years) (1 of 1 - PCV) 2006 Zoster Immunization (1 of 2) 2006 Influenza Immunization (#1) 01/26/202502/26, 03/01/2017, 02/28/2015 SARS-COV-2 Immunization ( season) 2025 05/30/2021, 07/26/2020, 06/28/2020 Respiratory Syncytial Virus (RSV) Immunization (Adult) (1 - 1-dose 75+ series) 2031 DTaP/Tdap/Td Immunization Discontinued 01/01/2018 TdaP Immunization Completed 01/01/2018 Hepatitis B Immunization Aged Out No longer eligible based on patient's age to complete this topic Human Papillomavirus (HPV) Immunization Aged Out No longer eligible based on patient's age to complete this topic Meningococcal Immunization (ACWY) Aged Out No longer eligible based on patient's age to complete this topic Rotavirus Immunization Aged Out No lo nger eligible based on patient's age to complete this topic
[2025-04-27 08:15] VITALS: PULSE 90; O2SAT 94
[2025-04-27 08:20] VITALS: PULSE 112; O2SAT 87
[2025-04-27 08:21] VITALS: PULSE 110; O2SAT 91
[2025-04-27 08:30] VITALS: PULSE 92; O2SAT 93
--- NOTE | 2025-04-27 08:42 | HOMEO2EVAL ---
Evaluation was performed at [facility] Home Oxygen Evaluation RC: Home Oxygen (O2) Evaluation Start: 04/27/25 08:36 Freq: Status: Active Protocol: RPE Activity Type Activity Date Activity User E-sign Co-sign Detail Recorded Client Recorded Date Recorded By Document 04/27/25 08:15 PETER [email or web address] 04/27/25 08:41 PETER Document 04/27/25 08:20 PETER [id number] 04/27/25 08:41 PETER Document 04/27/25 08:21 PETER [id number] 04/27/25 08:41 PETER Document 04/27/25 08:30 PETER [email or web address] 04/27/25 08:41 PETER 04/27/25 04/27/25 04/27/25 08:15 08:20 08:21 Home O2 Evaluation [Oxygen] -Test Phase Resting Exercise Exercise -Oxygen Delivery Room Air Room Air Nasal Cannula -Oxygen Flow Rate (L/min) 2 [Pulse Oximetry] -Pulse Oximetry (90-100 %) 94 87 L 91 [Pulse Rate] -Pulse Rate (60-100 beats/min) 90 112 H 110 H [Exercise] -Ambulation Distance (feet) 800 -Ambulation Distance (meters) 243.82 [Comments] -Home Oxygen Evaluation Comments Patient requires 2 liters home oxygen with activity/ exertion [Charges] -Evaluation Charges O2 Evaluation by Pulmonary 04/27/25 08:30 Home O2 Evaluation [Oxygen] -Test Phase Resting -Oxygen Delivery Room Air -Oxygen Flow Rate (L/min) [Pulse Oximetry] -Pulse Oximetry (90-100 %) 93 [Pulse Rate] -Pulse Rate (60-100 beats/min) 92 [Exercise] -Ambulation Distance (feet) -Ambulation Distance (meters) [Comments] -Home Oxygen Evaluation Comments [Charges] -Evaluation Charges
== END 2025-04-27 07:49 | disposition home or self-care (01) ==
PROVIDERS: PCP Internal Medicine; Visit Provider Nurse Practitioner Family
DX: J44.9 Chronic obstructive pulmonary disease, unspecified (principal)
CPT/HCPCS: 94618